=== PATIENT | male | born 2000 | race Asian ===

== ENCOUNTER 2019-01-26 19:09 | Emergency (ER) | payer OTHER ==
[~2019-01-26] VITALS: Ht 170.2 cm; Wt 63.0 kg
[2019-01-27 00:35] VITALS: BP 122/71
== END 2019-01-27 00:38 | disposition home or self-care (01) ==
LOC: ER 19:09
DX: S09.8XXA Other specified injuries of head, initial encounter (principal); S93.491A Sprain of other ligament of right ankle, initial encounter; V00.831A Fall from motorized mobility scooter, initial encounter; Y93.89 Activity, other specified; Y92.488 Other paved roadways as the place of occurrence of the external cause
CPT/HCPCS: 73610; 99284